=== PATIENT | female | born 1975 | race Caucasian/White ===

== ENCOUNTER 2019-05-29 12:37 | Emergency (ER) | payer OTHER ==
[2019-05-29 12:54] VITALS: BP 167/101; RESP 18; TEMP 97.9
[2019-05-29] MEDS ORDERED: IPRATROPIUM-ALBUTEROL 3 ML NEB INHALATION STA (13:27)
--- NOTE | 2019-05-29 14:02 | ED ---
URI HPI - General Chief Complaint: Upper Respiratory Infection Stated Complaint: SOB, back pain Time Seen by Provider: 05/29/19 13:21 Source: patient, RN notes reviewed Mode of arrival: ambulatory Limitations: no limitations - History of Present Illness Initial Comments: This a 44-year-old female presents emergency from chief complaint of cough congestion. Patient states she has been sick since Sunday. Patient states the cough is productive with some phlegm. Patient states she has some achiness in her back. She has been short of breath from congestion. Patient has a large amount nasal congestion, sore throat. Patient denies any known fever. Patient states color PCP who sent her here for evaluation because she was on a cruise. He states her no outbreaks on a cruise. She states that she went to the [facility] out of [place]. She flew from [place]. Patient denies any other sick contacts. - Related Data Previous Rx's Medication Instructions Recorded Albuterol Sulfate [Proair Hfa] 1 - 2 puff INHALATION Q4HR PRN #1 05/29/19 inhaler predniSONE 50 mg PO DAILY #3 tab 05/29/19 Allergies Allergy/AdvReac Type Severity Reaction Status Date / Time Penicillins Allergy Rash/Hives Verified 05/29/19 12:54 Review of Systems ROS Statement: Those systems with pertinent positive or pertinent negative responses have been documented in the HPI. ROS Other: All systems not noted in ROS Statement are negative. General Exam Limitations: no limitations General appearance: alert, in no apparent distress Head exam: Present: atraumatic, normocephalic, normal inspection Eye exam: Present: normal appearance, PERRL, EOMI. Absent: scleral icterus, conjunctival injection, periorbital swelling ENT exam: Present: normal exam, normal oropharynx, mucous membranes moist, TM's normal bilaterally Neck exam: Present: normal inspection, full ROM. Absent: tenderness, meningismus, lymphadenopathy Respiratory exam: Present: wheezes, rhonchi. Absent: normal lung sounds bilaterally, respiratory distress, rales, stridor Cardiovascular Exam: Present: regular rate, normal rhythm, normal heart sounds. Absent: systolic murmur, diastolic murmur, rubs, gallop, clicks Course Vital Signs 05/29/19 05/29/19 05/29/19 12:48 14:01 14:19 Temperature 97.9 F Pulse Rate 77 80 80 Respiratory 18 Rate Blood Pressure 167/101 O2 Sat by Pulse 100 Oximetry Medical Decision Making - Medical Decision Making Chest x-rays unremarkable, influenza a positive patient has mild bronchospasm did respond to drink breathing treatment. Patient be discharged with 2 days of steroids, inhaler return parameters were discussed. - Lab Data Lab Results 05/29/19 Range/Units 13:50 Influenza Type A RNA Detected H (Not Detectd) Influenza Type B (PCR) Not Detected (Not Detectd) Disposition Clinical Impression: Influenza, Acute bronchospasm Disposition: HOME SELF-CARE Condition: Stable Instructions (If sedation given, give patient instructions): Influenza (ED) Additional Instructions: Please return to the Emergency Department if symptoms worsen or any other concerns. Prescriptions: predniSONE 50 mg PO DAILY #3 tab Albuterol Sulfate [Proair Hfa] 1 - 2 puff INHALATION Q4HR PRN #1 inhaler PRN Reason: difficulty in breathing Is patient prescribed a controlled substance at d/c from ED?: No Referrals: Michael Castelan DO [Primary Care Provider] - 1-2 days Time of Disposition: 14:48
[2019-05-29 14:04] VITALS: PULSE 80
--- NOTE | 2019-05-29 14:04 | XR ---
EXAMINATION TYPE: XR chest 2V DATE OF EXAM: 05/29/2019 COMPARISON: NONE HISTORY: Cough and body aches. Sore throat. TECHNIQUE: Frontal and lateral views of the chest are obtained. FINDINGS: An azygos lobe/fissure is seen. There is no focal air space opacity, pleural effusion, or p neumothorax seen. The cardiac silhouette size is within normal limits. The osseous structures are intact. IMPRESSION: No suspicious acute infiltrate identified.
== END 2019-05-29 15:29 | disposition home or self-care (01) ==
LOC: EC 12:37
DX: J98.01 Acute bronchospasm (principal); J10.1 Influenza due to other identified influenza virus with other respiratory manifestations; M54.9 Dorsalgia, unspecified; Z88.0 Allergy status to penicillin
CPT/HCPCS: 71046; 87502; 94640; 99285